=== PATIENT | female | born 1975 | race Native Hawaiian/Other Pacific Islander ===

== ENCOUNTER → 2018-03-16 | Outpatient (CLI) | payer OTHER ==
[2018-03-16 11:55] LABS: Basophils # (A) 0.1 k/uL (0-0.2); Basophils % (A) 1 %; Eosinophils # (A) 0.2 k/uL (0-0.7); Eosinophils % (A) 3 %; HCT 38.8 % (34.0-46.0); HGB 13.2 gm/dL (11.4-16.0); Lymphocytes # (A) 3.1 k/uL (1.0-4.8); Lymphocytes % (A) 33 %; MCH 30.5 pg (25.0-35.0); MCHC 34.1 g/dL (31.0-37.0); MCV 89.6 fL (80.0-100.0); Mean Platelet Volume 6.5; Monocytes # (A) 0.4 k/uL (0-1.0); Monocytes % (A) 4 %; Neutrophils # (A) 5.4 k/uL (1.3-7.7); Neutrophils % (A) 58 %; Platelet Count 376 k/uL (150-450); RBC 4.33 m/uL (3.80-5.40); RDW 12.4 % (11.5-15.5); WBC 9.3 k/uL (3.8-10.6)
[2018-03-16 13:51] LABS: ALT 18 U/L (9-52); AST 15 U/L (14-36); Alkaline Phosphatase 60 U/L (38-126); Anion Gap 10 mmol/L; Blood Urea Nitrogen 14 mg/dL (7-17); Calcium 9.3 mg/dL (8.4-10.2); Carbon Dioxide 22 mmol/L (22-30); Chloride 108 mmol/L (98-107); Glucose 111 mg/dL (74-99); Potassium 4.3 mmol/L (3.5-5.1); Sodium 140 mmol/L (137-145); Total Bilirubin 0.3 mg/dL (0.2-1.3)
== END | disposition home or self-care (01) ==
LOC: LABWHC1 10:26
PROVIDERS: ATTEND Internal Medicine
DX: K21.9 Gastro-esophageal reflux disease without esophagitis (principal); R53.83 Other fatigue; Z13.6 Encounter for screening for cardiovascular disorders
CPT/HCPCS: 36415; 80053; 85025

== ENCOUNTER → 2018-03-17 | Outpatient (CLI) | payer OTHER ==
[2018-03-17 10:26] LABS: Cholesterol 145 mg/dL (<200); HDL Cholesterol 39 mg/dL (40-60); LDL Cholesterol,Calculated 91 mg/dL (0-99); Triglycerides 77 mg/dL (<150)
== END | disposition home or self-care (01) ==
LOC: LABWHC1 09:25
PROVIDERS: ATTEND Internal Medicine
DX: K21.9 Gastro-esophageal reflux disease without esophagitis (principal); R53.83 Other fatigue; Z13.6 Encounter for screening for cardiovascular disorders
CPT/HCPCS: 36415; 80061

== ENCOUNTER → 2019-03-15 | Outpatient (CLI) | payer OTHER ==
--- NOTE | 2019-03-15 08:58 | MR ---
EXAMINATION TYPE: MR lumbar spine wo con DATE OF EXAM: 03/15/2019 COMPARISON: MRI lumbar spine December 07, 2015. HISTORY: Lumbago per order. Back pain into right leg for 3 years per patient. TECHNIQUE: Multiplanar, multisequence imaging of the lumbar spine is performed without IV contrast. FINDINGS: Sagittal images of the lumbar spine show vertebral body heights and alignment to appear sat isfactory. There is disc desiccation L4-L5 and L5-S1 levels with mild disc space narrowing L4-L5 leve l redemonstrated. Annular tear now present L5-S1 level sagittal image 7. The conus medullaris remain s normal in position and signal ending at L1 level. The bone marrow signal intensity is within favian l limits more hyperintense than the adjacent skeletal muscle. Axial images show the T12-L1, L1-L2, L2-L3, and L3-L4 levels all to remain within normal limits. Axial images at the L4-L5 level redemonstrated mild facet degenerative changes and ligamentum flavum hypertrophy producing posterior lateral thecal sac. There is mild broad disc bulge mildly effacing th e anterior thecal sac. Bilateral neural foramina remain patent. No significant change from prior. Axial images at the L5-S1 level shows [id number] facet degenerative changes bilaterally. There is mild broad-based right paracentral disc protrusion with annular tear axial image 3. Focal larger p rotrusion was present on prior study. There is mild effacement of anterior thecal sac improved from p rior. Bilateral neural foramina remain patent. IMPRESSION: Degenerative changes lower lumbar spine redemonstrated. Disc herniation less prominent L5 -S1 level versus prior. No new suspicious disc herniations are seen to account for patient's right-si ded radiculopathy type symptoms however.
== END | disposition home or self-care (01) ==
LOC: RADMRIMAIN 08:20
PROVIDERS: ATTEND Psychiatry & Neurology Neurology
DX: M47.816 Spondylosis without myelopathy or radiculopathy, lumbar region (principal); Z88.6 Allergy status to analgesic agent
CPT/HCPCS: 72148

== ENCOUNTER 2022-02-11 12:25 | Emergency (ER) | payer OTHER ==
[2022-02-11 12:37] VITALS: TEMP 98.3
[2022-02-11] MEDS ORDERED: MORPHINE SULFATE 4 MG/ML SYRINGE IM STA (13:17)
--- NOTE | 2022-02-11 14:21 | ED ---
Lower Extremity Injury HPI - General Chief Complaint: Extremity Injury, Lower Stated Complaint: foot injury Time Seen by Provider: 02/11/22 13:01 Source: patient, RN notes reviewed Mode of arrival: ambulatory Limitations: no limitations - History of Present Illness Initial Comments: Patient is a 46-year-old female who presents to the emergency room with complaints of severe left foot pain after stepping on a rake in her yard. She reports that 2 prongs of the rake punctured the bottom portion of her foot. Her sandal. She was able to pull the rake out but pain and swelling persist. She denies any fevers or foul drainage. She has a past medical history significant for chronic back pain and migraines. She denies any history of diabetes. She does have a history of MRSA. She reports her range of motion is impaired due to pain and swelling but can move her toes and foot. She denies any numbness or tingling. Tetanus is up-to-date. She denies any other complaints or concerns. - Related Data Home Medications Medication Instructions Recorded Confirmed HYDROcodone/APAP 10-325MG [Totz 1 tab PO Q4HR PRN 12/11/15 12/11/15 10-325] Loratadine [Claritin] 10 mg PO DAILY 12/11/15 12/11/15 Previous Rx's Medication Instructions Recorded Sulfamethox-Tmp 800-160Mg [Bactrim 2 each PO Q12HR #40 tab 12/11/15 Ds] Tolnaftate [Tinactin Powder] 1 applic TP BID #108 gram 12/11/15 Ciprofloxacin HCl [Cipro] 500 mg PO Q12HR 7 Days #14 tab 02/11/22 Sulfamethox-Tmp 800-160Mg [Bactrim 1 tab PO Q12HR 7 Days #14 tab 02/11/22 DS 800-160 mg] Allergies Allergy/AdvReac Type Severity Reaction Status Date / Time diphenhydramine HCl Allergy Rash/Hives Verified 02/11/22 12:37 [From Benadryl] propoxyphene napsylate Allergy Rash/Hives Verified 02/11/22 12:37 [From Darvocet-N 100] adhesive AdvReac Rash/Hives Verified 02/11/22 12:37 tramadol HCl [From Ultram] AdvReac Rapid Verified 02/11/22 12:37 Heart Rate Review of Systems ROS Statement: Those systems with pertinent positive or pertinent negative responses have been documented in the HPI. ROS Other: All systems not noted in ROS Statement are negative. Past Medical History Past Medical History: Musculoskeletal Disorder Additional Past Medical History / Comment(s): migraines, chronic back pain, sciatica, lt . foot wound History of Any Multi-Drug Resistant Organisms: MRSA Date of last positivie culture/infection: 06/05/15 MDRO Source:: RIGHT foot Past Surgical History: Cholecystectomy, Hysterectomy Additional Past Surgical History / Comment(s): left foot sx Past Anesthesia/Blood Transfusion Reactions: Motion Sickness, Postoperative Nausea & Vomiting (PONV) Past Psychological History: No Psychological Hx Reported, Bipolar Smoking Status: Current every day smoker Past Alcohol Use History: None Reported Past Drug Use History: None Reported - Past Family History Mother Family Medical History: No Reported History General Exam Limitations: no limitations General appearance: alert, in no apparent distress Head exam: Present: atraumatic, normocephalic, normal inspection Eye exam: Present: normal appearance, PERRL, EOMI. Absent: scleral icterus, conjunctival injection, periorbital swelling ENT exam: Present: normal exam, mucous membranes moist Left Lower Leg exam: Present: normal inspection, full ROM Ankle exam: Present: normal inspection, full ROM Foot/Toe exam: Present: tenderness, swelling, puncture wound (x2 plantar aspect well approximated without drainage) Neurovascular tendon exam: Present: no vascular compromise Gait: observed and limited by pain Neurological exam: Present: alert, oriented X3, CN II-XII intact Psychiatric exam: Present: normal affect, normal mood Skin exam: Present: warm, dry. Absent: rash Course Vital Signs 02/11/22 12:34 Temperature 98.3 F Pulse Rate 91 Respiratory 16 Rate Blood Pressure 137/91 O2 Sat by Pulse 99 Oximetry Medical Decision Making - Medical Decision Making X-ray images reviewed showing no foreign body or fractures. Soft tissue swelling noted. Pain improved with IM dose of morphine. No evidence of cellulitis or sepsis at this time. Disposition Clinical Impression: Puncture wound of foot Disposition: HOME SELF-CARE Condition: Good Instructions (If sedation given, give patient instructions): Puncture Wound in the Foot (ED) Additional Instructions: Please return to the Emergency Department if symptoms worsen or any other concerns. Prescriptions: Sulfamethox-Tmp 800-160Mg [Bactrim DS 800-160 mg] 1 tab PO Q12HR 7 Days #14 tab Ciprofloxacin HCl [Cipro] 500 mg PO Q12HR 7 Days #14 tab Is patient prescribed a controlled substance at d/c from ED?: No Referrals: None,Stated [Primary Care Provider] - 1-2 days
[2022-02-11] MEDS ORDERED: ACET/COD 300 MG/30 MG STARTER PACK 6 TAB BTL PO STA (14:28)
[2022-02-11 14:43] VITALS: BP 132/67; PULSE 67; RESP 18
--- NOTE | 2022-02-11 18:33 | XR ---
EXAMINATION TYPE: XR foot complete LT DATE OF EXAM: 02/11/2022 COMPARISON: 12/11/2015 HISTORY: Pain TECHNIQUE: 3 views FINDINGS: Metatarsals are intact. I see no fracture nor dislocation. Joint spaces are fairly normal. There are no erosions. The hindfoot appears intact. IMPRESSION: Negative left foot exam. No fracture. No sign of inflammatory arthritis.
== END 2022-02-11 14:43 | disposition home or self-care (01) ==
LOC: EC 12:25
DX: S91.332A Puncture wound without foreign body, left foot, initial encounter (principal); F17.200 Nicotine dependence, unspecified, uncomplicated; W26.8XXA Contact with other sharp object(s), not elsewhere classified, initial encounter; Y92.096 Garden or yard of other non-institutional residence as the place of occurrence of the external cause
CPT/HCPCS: 73630; 99283; 96372; J2270

== ENCOUNTER 2022-02-20 05:58 | Observation (INO) | payer OTHER ==
[2022-02-20 06:05] VITALS: RESP 18
[2022-02-20] MEDS ORDERED: SODIUM CHLORIDE 0.9% 1,000 ML IV ONE (06:41)
[2022-02-20] MEDS ORDERED: ACETAMINOPHEN TAB 500 MG TAB PO STA (06:43)
--- NOTE | 2022-02-20 06:47 | ED ---
General Adult HPI - General Chief complaint: Altered Mental Status Stated complaint: AMS Time Seen by Provider: 02/20/22 06:30 Source: patient, EMS, RN notes reviewed, old records reviewed Mode of arrival: EMS - History of Present Illness Initial comments: 46-year-old female, alert and oriented 4, presents to emergency room after brought in by EMS for altered mental status. Patient states that she was outside in the tent with her dogs and went into the house and could not find any family members. She states she felt very cold and walked up to the [facility] and became more confused and they called the ambulance. Patient states she has no complaints of pain, no shortness of breath or cough, no nausea, vomiting or diarrhea. She denies any abdominal pain or dysuria. According to medical records, patient had an ER visit February 11 for puncture wound to her left foot and she was placed on Bactrim and Cipro. Patient denies foot pain, there is no erythema noted to the left foot. She does have a history of migraines, chronic back pain and bipolar. She denies any alcohol or drug use but states is a pack-a-day smoker. -: hour(s) Severity scale (1-10): 0 Consistency: now resolved Associated Symptoms: confusion, fever/chills Treatments Prior to Arrival: other (IVF) - Related Data Home Medications Medication Instructions Recorded Confirmed No Known Home Medications 02/20/22 02/20/22 Allergies Allergy/AdvReac Type Severity Reaction Status Date / Time diphenhydramine HCl Allergy Rash/Hives Verified 02/20/22 07:57 [From Benadryl] propoxyphene napsylate Allergy Rash/Hives Verified 02/20/22 07:57 [From Darvocet-N 100] adhesive AdvReac Rash/Hives Verified 02/20/22 07:57 tramadol HCl [From Ultram] AdvReac Rapid Verified 02/20/22 07:57 Heart Rate Review of Systems ROS Statement: Those systems with pertinent positive or pertinent negative responses have been documented in the HPI. ROS Other: All systems not noted in ROS Statement are negative. Past Medical History Past Medical History: Musculoskeletal Disorder Additional Past Medical History / Comment(s): migraines, chronic back pain, sciatica, lt . foot wound History of Any Multi-Drug Resistant Organisms: MRSA Date of last positivie culture/infection: 06/05/15 MDRO Source:: RIGHT foot Past Surgical History: Cholecystectomy, Hysterectomy Additional Past Surgical History / Comment(s): left foot sx Past Anesthesia/Blood Transfusion Reactions: Motion Sickness, Postoperative Nausea & Vomiting (PONV) Past Psychological History: No Psychological Hx Reported, Bipolar Smoking Status: Current every day smoker Past Alcohol Use History: None Reported Past Drug Use History: None Reported - Past Family History Mother Family Medical History: No Reported History General Exam General appearance: alert, in no apparent distress Head exam: Present: atraumatic Eye exam: Present: normal appearance, PERRL, EOMI. Absent: scleral icterus, conjunctival injection, nystagmus, periorbital swelling, periorbital tenderness ENT exam: Present: normal exam, normal oropharynx, mucous membranes moist Neck exam: Present: normal inspection, full ROM. Absent: tenderness, meningismus, lymphadenopathy Respiratory exam: Present: normal lung sounds bilaterally. Absent: respiratory distress, accessory muscle use Cardiovascular Exam: Present: tachycardia GI/Abdominal exam: Present: soft. Absent: distended, tenderness Extremities exam: Present: normal capillary refill. Absent: tenderness, pedal edema Back exam: Present: full ROM. Absent: tenderness, CVA tenderness (R), CVA tenderness (L), rash noted Neurological exam: Present: alert, oriented X3, CN II-XII intact Psychiatric exam: Present: normal affect, normal mood Skin exam: Present: warm, normal color, diaphoretic. Absent: cyanosis, petechiae, pallor Course Vital Signs 02/20/22 02/20/22 02/20/22 05:59 07:49 08:22 Temperature 101.9 F H 100 F H 98.7 F Pulse Rate 138 H 106 H 101 H Respiratory 18 18 18 Rate Blood Pressure 111/57 98/66 97/62 O2 Sat by Pulse 98 98 98 Oximetry EKG Findings - EKG Results: EKG: sinus rhythm (Ventricular rate 1:30, IA interval 0.120, QRS 0.81, QTC 0.376) Medical Decision Making - Medical Decision Making Patient brought in by EMS for altered mental status with fever. Patient is alert and oriented 4 at this time with complaints of chills only. She denies any abdominal pain, chest pain, or shortness of breath. Denies dysuria. Patient has leukocytosis with evidence of a urinary tract infection. She was given a gram of Rocephin. She was also found to have KRISTIN and elevated troponin. I have a low suspicion that this is cardiac in nature however patient was given aspirin in the ER for elevated troponin. Hypokalemia 3.2 and she was given 40 of K-dur. Heart rate and temperature have come down with Tylenol and IVF. Vital signs are stable. Urine drug screen was positive for opiates, amphetamines, methamphetamines and marijuana which is likely the cause of her altered mental status which has now resolved. Patient will be admitted for urinary tract infection, KRISTIN, elevated troponin, polysubstance abuse and hypokalemia. Case discussed with Dr. Ordoñez - Lab Data Result diagrams: 02/20/22 06:41 02/20/22 06:41 Lab Results 02/20/22 02/20/22 02/20/22 Range/Units 06:41 06:41 06:41 WBC 20.6 H (3.8-10.6) k/uL RBC 4.33 (3.80-5.40) m/uL Hgb 13.0 (11.4-16.0) gm/dL Hct 39.8 (34.0-46.0) % MCV 92.0 (80.0-100.0) fL MCH 30.1 (25.0-35.0) pg MCHC 32.7 (31.0-37.0) g/dL RDW 12.8 (11.5-15.5) % Plt Count 432 (150-450) k/uL MPV 8.0 Neutrophils % 88 % Lymphocytes % 8 % Monocytes % 3 % Eosinophils % 0 % Basophils % 0 % Neutrophils # 18.0 H (1.3-7.7) k/uL Lymphocytes # 1.7 (1.0-4.8) k/uL Monocytes # 0.6 (0-1.0) k/uL Eosinophils # 0.1 (0-0.7) k/uL Basophils # 0.1 (0-0.2) k/uL PT 11.8 (9.0-12.0) sec INR 1.1 (<1.2) APTT 24.4 (22.0-30.0) sec Sodium 137 (137-145) mmol/L Potassium 3.2 L (3.5-5.1) mmol/L Chloride 103 (98-107) mmol/L Carbon Dioxide 17 L (22-30) mmol/L Anion Gap 17 mmol/L BUN 18 H (7-17) mg/dL Creatinine 1.33 H (0.52-1.04) mg/dL Est GFR (CKD-EPI)AfAm 56 (>60 ml/min/1.73 sqM) Est GFR (CKD-EPI)NonAf 48 (>60 ml/min/1.73 sqM) Glucose 224 H (74-99) mg/dL Calcium 9.0 (8.4-10.2) mg/dL Total Bilirubin 0.6 (0.2-1.3) mg/dL AST 25 (14-36) U/L ALT 26 (4-34) U/L Alkaline Phosphatase 106 (38-126) U/L CK-MB (CK-2) (0.0-2.4) ng/mL Troponin I (0.000-0.034) ng/mL Total Protein 7.4 (6.3-8.2) g/dL Albumin 4.1 (3.5-5.0) g/dL Urine Color Urine Appearance (Clear) Urine pH (5.0-8.0) Ur Specific Steele (1.001-1.035) Urine Protein (Negative) Urine Glucose (UA) (Negative) Urine Ketones (Negative) Urine Blood (Negative) Urine Nitrite (Negative) Urine Bilirubin (Negative) Urine Urobilinogen (<2.0) mg/dL Ur Leukocyte Esterase (Negative) Urine RBC (0-5) /hpf Urine WBC (0-5) /hpf Urine WBC Clumps (None) /hpf Ur Squamous Epith Cells (0-4) /hpf Urine Bacteria (None) /hpf Urine Mucus (None) /hpf Urine HCG, Qual (Not Detectd) Urine Opiates Screen (NotDetected) Ur Oxycodone Screen (NotDetected) Urine Methadone Screen (NotDetected) Ur Propoxyphene Screen (NotDetected) Ur Barbiturates Screen (NotDetected) U Tricyclic Antidepress (NotDetected) Ur Phencyclidine Scrn (NotDetected) Ur Amphetamines Screen (NotDetected) U Methamphetamines Scrn (NotDetected) U Benzodiazepines Scrn (NotDetected) Urine Cocaine Screen (NotDetected) U Marijuana (THC) Screen (NotDetected) Serum Alcohol <10 mg/dL Coronavirus (PCR) (Not Detectd) Influenza Type A RNA (Not Detectd) Influenza Type B (PCR) (Not Detectd) 02/20/22 02/20/22 02/20/22 Range/Units 06:41 06:41 06:42 WBC (3.8-10.6) k/uL RBC (3.80-5.40) m/uL Hgb (11.4-16.0) gm/dL Hct (34.0-46.0) % MCV (80.0-100.0) fL MCH (25.0-35.0) pg MCHC (31.0-37.0) g/dL RDW (11.5-15.5) % Plt Count (150-450) k/uL MPV Neutrophils % % Lymphocytes % % Monocytes % % Eosinophils % % Basophils % % Neutrophils # (1.3-7.7) k/uL Lymphocytes # (1.0-4.8) k/uL Monocytes # (0-1.0) k/uL Eosinophils # (0-0.7) k/uL Basophils # (0-0.2) k/uL PT (9.0-12.0) sec INR (<1.2) APTT (22.0-30.0) sec Sodium (137-145) mmol/L Potassium (3.5-5.1) mmol/L Chloride (98-107) mmol/L Carbon Dioxide (22-30) mmol/L Anion Gap mmol/L BUN (7-17) mg/dL Creatinine (0.52-1.04) mg/dL Est GFR (CKD-EPI)AfAm (>60 ml/min/1.73 sqM) Est GFR (CKD-EPI)NonAf (>60 ml/min/1.73 sqM) Glucose (74-99) mg/dL Calcium (8.4-10.2) mg/dL Total Bilirubin (0.2-1.3) mg/dL AST (14-36) U/L ALT (4-34) U/L Alkaline Phosphatase (38-126) U/L CK-MB (CK-2) 2.0 (0.0-2.4) ng/mL Troponin I 1.010 H* (0.000-0.034) ng/mL Total Protein (6.3-8.2) g/dL Albumin (3.5-5.0) g/dL Urine Color Urine Appearance (Clear) Urine pH (5.0-8.0) Ur Specific Steele (1.001-1.035) Urine Protein (Negative) Urine Glucose (UA) (Negative) Urine Ketones (Negative) Urine Blood (Negative) Urine Nitrite (Negative) Urine Bilirubin (Negative) Urine Urobilinogen (<2.0) mg/dL Ur Leukocyte Esterase (Negative) Urine RBC (0-5) /hpf Urine WBC (0-5) /hpf Urine WBC Clumps (None) /hpf Ur Squamous Epith Cells (0-4) /hpf Urine Bacteria (None) /hpf Urine Mucus (None) /hpf Urine HCG, Qual (Not Detectd) Urine Opiates Screen (NotDetected) Ur Oxycodone Screen (NotDetected) Urine Methadone Screen (NotDetected) Ur Propoxyphene Screen (NotDetected) Ur Barbiturates Screen (NotDetected) U Tricyclic Antidepress (NotDetected) Ur Phencyclidine Scrn (NotDetected) Ur Amphetamines Screen (NotDetected) U Methamphetamines Scrn (NotDetected) U Benzodiazepines Scrn (NotDetected) Urine Cocaine Screen (NotDetected) U Marijuana (THC) Screen (NotDetected) Serum Alcohol mg/dL Coronavirus (PCR) (Not Detectd) Influenza Type A RNA Not Detected (Not Detectd) Influenza Type B (PCR) Not Detected (Not Detectd) 02/20/22 02/20/22 02/20/22 Range/Units 06:42 07:03 07:03 WBC (3.8-10.6) k/uL RBC (3.80-5.40) m/uL Hgb (11.4-16.0) gm/dL Hct (34.0-46.0) % MCV (80.0-100.0) fL MCH (25.0-35.0) pg MCHC (31.0-37.0) g/dL RDW (11.5-15.5) % Plt Count (150-450) k/uL MPV Neutrophils % % Lymphocytes % % Monocytes % % Eosinophils % % Basophils % % Neutrophils # (1.3-7.7) k/uL Lymphocytes # (1.0-4.8) k/uL Monocytes # (0-1.0) k/uL Eosinophils # (0-0.7) k/uL Basophils # (0-0.2) k/uL PT (9.0-12.0) sec INR (<1.2) APTT (22.0-30.0) sec Sodium (137-145) mmol/L Potassium (3.5-5.1) mmol/L Chloride (98-107) mmol/L Carbon Dioxide (22-30) mmol/L Anion Gap mmol/L BUN (7-17) mg/dL Creatinine (0.52-1.04) mg/dL Est GFR (CKD-EPI)AfAm (>60 ml/min/1.73 sqM) Est GFR (CKD-EPI)NonAf (>60 ml/min/1.73 sqM) Glucose (74-99) mg/dL Calcium (8.4-10.2) mg/dL Total Bilirubin (0.2-1.3) mg/dL AST (14-36) U/L ALT (4-34) U/L Alkaline Phosphatase (38-126) U/L CK-MB (CK-2) (0.0-2.4) ng/mL Troponin I (0.000-0.034) ng/mL Total Protein (6.3-8.2) g/dL Albumin (3.5-5.0) g/dL Urine Color Yellow Urine Appearance Turbid H (Clear) Urine pH 5.5 (5.0-8.0) Ur Specific Steele 1.019 (1.001-1.035) Urine Protein 2+ H (Negative) Urine Glucose (UA) Trace H (Negative) Urine Ketones Negative (Negative) Urine Blood Moderate H (Negative) Urine Nitrite Negative (Negative) Urine Bilirubin Negative (Negative) Urine Urobilinogen 6.0 (<2.0) mg/dL Ur Leukocyte Esterase Large H (Negative) Urine RBC 23 H (0-5) /hpf Urine WBC >182 H (0-5) /hpf Urine WBC Clumps Many H (None) /hpf Ur Squamous Epith Cells 2 (0-4) /hpf Urine Bacteria Rare H (None) /hpf Urine Mucus Occasional H (None) /hpf Urine HCG, Qual Not Detected (Not Detectd) Urine Opiates Screen (NotDetected) Ur Oxycodone Screen (NotDetected) Urine Methadone Screen (NotDetected) Ur Propoxyphene Screen (NotDetected) Ur Barbiturates Screen (NotDetected) U Tricyclic Antidepress (NotDetected) Ur Phencyclidine Scrn (NotDetected) Ur Amphetamines Screen (NotDetected) U Methamphetamines Scrn (NotDetected) U Benzodiazepines Scrn (NotDetected) Urine Cocaine Screen (NotDetected) U Marijuana (THC) Screen (NotDetected) Serum Alcohol mg/dL Coronavirus (PCR) Not Detected (Not Detectd) Influenza Type A RNA (Not Detectd) Influenza Type B (PCR) (Not Detectd) 02/20/22 Range/Units 07:03 WBC (3.8-10.6) k/uL RBC (3.80-5.40) m/uL Hgb (11.4-16.0) gm/dL Hct (34.0-46.0) % MCV (80.0-100.0) fL MCH (25.0-35.0) pg MCHC (31.0-37.0) g/dL RDW (11.5-15.5) % Plt Count (150-450) k/uL MPV Neutrophils % % Lymphocytes % % Monocytes % % Eosinophils % % Basophils % % Neutrophils # (1.3-7.7) k/uL Lymphocytes # (1.0-4.8) k/uL Monocytes # (0-1.0) k/uL Eosinophils # (0-0.7) k/uL Basophils # (0-0.2) k/uL PT (9.0-12.0) sec INR (<1.2) APTT (22.0-30.0) sec Sodium (137-145) mmol/L Potassium (3.5-5.1) mmol/L Chloride (98-107) mmol/L Carbon Dioxide (22-30) mmol/L Anion Gap mmol/L BUN (7-17) mg/dL Creatinine (0.52-1.04) mg/dL Est GFR (CKD-EPI)AfAm (>60 ml/min/1.73 sqM) Est GFR (CKD-EPI)NonAf (>60 ml/min/1.73 sqM) Glucose (74-99) mg/dL Calcium (8.4-10.2) mg/dL Total Bilirubin (0.2-1.3) mg/dL AST (14-36) U/L ALT (4-34) U/L Alkaline Phosphatase (38-126) U/L CK-MB (CK-2) (0.0-2.4) ng/mL Troponin I (0.000-0.034) ng/mL Total Protein (6.3-8.2) g/dL Albumin (3.5-5.0) g/dL Urine Color Urine Appearance (Clear) Urine pH (5.0-8.0) Ur Specific Steele (1.001-1.035) Urine Protein (Negative) Urine Glucose (UA) (Negative) Urine Ketones (Negative) Urine Blood (Negative) Urine Nitrite (Negative) Urine Bilirubin (Negative) Urine Urobilinogen (<2.0) mg/dL Ur Leukocyte Esterase (Negative) Urine RBC (0-5) /hpf Urine WBC (0-5) /hpf Urine WBC Clumps (None) /hpf Ur Squamous Epith Cells (0-4) /hpf Urine Bacteria (None) /hpf Urine Mucus (None) /hpf Urine HCG, Qual (Not Detectd) Urine Opiates Screen Detected H (NotDetected) Ur Oxycodone Screen Not Detected (NotDetected) Urine Methadone Screen Not Detected (NotDetected) Ur Propoxyphene Screen Not Detected (NotDetected) Ur Barbiturates Screen Not Detected (NotDetected) U Tricyclic Antidepress Not Detected (NotDetected) Ur Phencyclidine Scrn Not Detected (NotDetected) Ur Amphetamines Screen Detected H (NotDetected) U Methamphetamines Scrn Detected H (NotDetected) U Benzodiazepines Scrn Not Detected (NotDetected) Urine Cocaine Screen Not Detected (NotDetected) U Marijuana (THC) Screen Detected H (NotDetected) Serum Alcohol mg/dL Coronavirus (PCR) (Not Detectd) Influenza Type A RNA (Not Detectd) Influenza Type B (PCR) (Not Detectd) Disposition Clinical Impression: UTI (urinary tract infection), KRISTIN (acute kidney injury), Elevated troponin, Polysubstance abuse, Hypokalemia, Mental status change resolved Disposition: ADMITTED IP TO THIS [facility] Decision Date: 02/20/22 Decision Time: 08:51
[2022-02-20 07:29] LABS: Basophils # (A) 0.1 k/uL (0-0.2); Basophils % (A) 0 %; Eosinophils # (A) 0.1 k/uL (0-0.7); Eosinophils % (A) 0 %; HCT 39.8 % (34.0-46.0); Lymphocytes # (A) 1.7 k/uL (1.0-4.8); Lymphocytes % (A) 8 %; MCH 30.1 pg (25.0-35.0); MCHC 32.7 g/dL (31.0-37.0); Monocytes # (A) 0.6 k/uL (0-1.0); Monocytes % (A) 3 %; Neutrophils % (A) 88 %; Platelet Count 432 k/uL (150-450); RBC 4.33 m/uL (3.80-5.40); RDW 12.8 % (11.5-15.5); WBC 20.6 k/uL (3.8-10.6)
[2022-02-20 07:38] LABS: INR 1.1 (<1.2); Partial Thromboplastin Time 24.4 sec (22.0-30.0); Prothrombin Time 11.8 sec (9.0-12.0)
[2022-02-20 07:58] LABS: ALT 26 U/L (4-34); AST 25 U/L (14-36); African American GFR (CKD) 56 (>60 ml/min/1.73 sqM); Albumin 4.1 g/dL (3.5-5.0); Alcohol <10 mg/dL; Alkaline Phosphatase 106 U/L (38-126); Anion Gap 17 mmol/L; Blood Urea Nitrogen 18 mg/dL (7-17); Carbon Dioxide 17 mmol/L (22-30); Chloride 103 mmol/L (98-107); Glucose 224 mg/dL (74-99); Non-African American GFR(CKD) 48 (>60 ml/min/1.73 sqM); Potassium 3.2 mmol/L (3.5-5.1); Sodium 137 mmol/L (137-145); Total Bilirubin 0.6 mg/dL (0.2-1.3); Total Protein 7.4 g/dL (6.3-8.2)
--- NOTE | 2022-02-20 08:05 | XR ---
EXAMINATION TYPE: XR chest 2V DATE OF EXAM: 02/20/2022 COMPARISON: Chest x-ray September 16, 2013. CTA chest September 16, 2013. HISTORY: Altered mental status and weakness. TECHNIQUE: Frontal and lateral views of the chest are obtained. FINDINGS: Poor inspiration. There is no focal air space opacity, pleural effusion, or pneumothorax s een. The cardiac silhouette size is mildly enlarged on current study. Overlying EKG leads. The osse ous structures are intact. IMPRESSION: Mild cardiomegaly may be on basis of poor inspiration. No suspicious acute pulmonary pro cess.
[2022-02-20] MEDS ORDERED: POTASSIUM CHLORIDE ER 20 MEQ TAB.ER PO STA (08:06)
[2022-02-20] MEDS ORDERED: ASPIRIN 81 MG PO STA (08:18)
[2022-02-20 08:23] VITALS: BP 97/62; PULSE 101; TEMP 98.7
[2022-02-20 08:34] LABS: Appearance,Urine Turbid (Clear); Bacteria,Urine Rare /hpf; Bilirubin,Urine Negative (Negative); Blood,Urine Moderate (Negative); Color,Urine Yellow; Glucose,Urine (UA) Trace (Negative); Ketones,Urine Negative (Negative); Leukocyte Esterase,Urine Large (Negative); Mucus,Urine Occasional /hpf; Nitrite,Urine Negative (Negative); PH, Urine 5.5 (5.0-8.0); Protein,Urine 2+ (Negative); RBC,Urine 23 /hpf (0-5); Specific Gravity,Urine 1.019 (1.001-1.035); Squamous Epithelial Cell,Urine 2 /hpf (0-4); WBC,Urine >182 /hpf (0-5)
[2022-02-20 08:35] LABS: Amphetamine Screen,Urine Detected (NotDetected); Cocaine Screen,Urine Not Detected (NotDetected); Opiate Screen,Urine Detected (NotDetected); Phencyclidine Screen,Urine Not Detected (NotDetected); Urn Cannabinoid Scrn Detected (NotDetected)
[2022-02-20 08:36] LABS: Barbiturate Screen,Urine Not Detected (NotDetected); Benzodiazepines Screen,Urine Not Detected (NotDetected); Methadone Screen, Urine Not Detected (NotDetected); Oxycodone Screen, Urine Not Detected (NotDetected); Tricyclic Antidepressant,Urine Not Detected (NotDetected)
[2022-02-20] MEDS ORDERED: cefTRIAXone IN SWFI 1,000 MG/10 ML SYRINGE IVP STA (08:44)
[2022-02-20] MEDS ORDERED: ACETAMINOPHEN TAB 325 MG TAB PO PRN (09:01)
[2022-02-20] MEDS ORDERED: NALOXONE 0.4 MG/ML 1 ML VIAL IV PRN (09:01)
[2022-02-20] MEDS ORDERED: SODIUM CHLORIDE 0.9% 1,000 ML IV SCH (09:15)
[2022-02-20] MEDS ORDERED: INSULIN ASPART (NovoLOG) 100 UNIT/ML VIAL SQ SCH (12:30)
--- NOTE | 2022-02-20 12:45 | CA ---
Transthoracic Echo Report Name: Loulou Garcia Age: 46 Gender: F : 1975 Exam Date: 02/20/2022 10:03 Exam Location: [place] [facility] Ht (in): 62 Wt (lb): 190 Ordering Physician: gAus Peguero Attending/Referring Phys: [employer] Form[employer] Machine Helper Evelyn Cain RDCS Procedure CPT: Indications: elevated trop Cardiac Hx: Technical Quality: Technically difficult study Contrast 1: Lumason Total Dose (mL): 3 Contrast 2: Total Dose (mL): MEASUREMENTS (Male / Female) Normal Values 2D ECHO LV Diastolic Diameter PLAX 3.4 cm 4.2 - 5.9 / 3.9 - 5.3 cm LV Systolic Diameter PLAX 2.7 cm IVS Diastolic Thickness 1.3 cm 0.6 - 1.0 / 0.6 - 0.9 cm LVPW Diastolic Thickness 1.3 cm 0.6 - 1.0 / 0.6 - 0.9 cm LV Relative Wall Thickness 0.8 LA Volume 52.8 cm??? 18 - 58 / 22 - 52 cm??? M-MODE Aortic Root Diameter MM 2.3 cm DOPPLER AV Peak Velocity 126.9 cm/s AV Peak Gradient 6.4 mmHg LVOT Peak Velocity 83.6 cm/s LVOT Peak Gradient 2.8 mmHg MV Area PHT 4.7 cm??? Mitral E Point Velocity 88.0 cm/s Mitral A Point Velocity 76.6 cm/s Mitral E to A Ratio 1.1 MV Deceleration Time 160.0 ms TR Peak Velocity 223.9 cm/s TR Peak Gradient 20.0 mmHg Right Ventricular Systolic Press 25.0 mmHg FINDINGS Left Ventricle Mildly increased left ventricular wall thickness. No obvious regional wall motion abnormalities. Left ventricular ejection fraction is estimated at 50 %. Normal left ventricular diastolic filling pattern. Right Ventricle Right ventricle not well visualized. Right ventricular systolic pressure within normal limits. Right Atrium Normal right atrial size. Left Atrium Normal left atrial size. No evidence for an atrial septal defect. Mitral Valve Structurally normal mitral valve. Mild mitral regurgitation. Mitral annular calcification. Aortic Valve Aortic valve not well visualized. No aortic valve stenosis or regurgitation. Tricuspid Valve Structurally normal tricuspid valve. Mild tricuspid regurgitation. Pulmonic Valve Structurally normal pulmonic valve. Trace pulmonic regurgitation. Pericardium No pericardial effusion. Aorta Normal size aortic root and proximal ascending aorta. CONCLUSIONS Technically difficult study fairly well-preserved systolic function. Echo contrast was used to enhance images. Mild mitral and tricuspid insufficiency. No pericardial effusion Previewed by: Dr. Feliciano Lucas MD (Electronically Signed) Final Date: 20 February 2022 12:44
[2022-02-20] MEDS ORDERED: HEPARIN SODIUM,PORCINE/PF 5,000 UNIT/0.5 ML SYRINGE SQ SCH (16:00)
--- NOTE | 2022-02-20 18:31 | CONS ---
CONSULTATION CHIEF COMPLAINT: Elevated troponin. This is a 46-year-old lady who is brought to the emergency room at [facility] apparently for altered mental status. Patient was outside in the tent with her dogs. She felt cold, walked up to the local [employer]; she was confused and an ambulance was called. In the emergency room she appears alert and awake. Denies any chest pain, difficulty in breathing, palpitations or syncope. There are no focal neurological deficits. She has history of migraine, chronic back pain and bipolar mood disorder. She is apparently not taking any medications. Patient denies any drug use; however, her urine drug screen is positive for opiates, amphetamines, methamphetamines and marijuana. Her first troponin was 1. The subsequent troponin was 0.6. EKG revealed sinus rhythm without acute ST-T wave changes. There was sinus tachycardia. An echocardiogram showed normal LV function without any wall motion abnormalities. After my initial evaluation I advised the patient to get admitted for observation and monitoring. PAST MEDICAL HISTORY: Negative for hypertension, diabetes, dyslipidemia. MEDICATIONS: Medications at home included Ceftin 500 b.i.d. ALLERGIES: DARVOCET, TRAMADOL AND BENADRYL. FAMILY HISTORY: Negative for premature coronary artery disease. SOCIAL HISTORY: Significant for drug abuse and smoking. REVIEW OF SYSTEMS: HEENT is unremarkable. CARDIAC: As described above. RESPIRATORY: Negative. GI: Negative. GENITOURINARY: Negative. ALLERGY/IMMUNOLOGY: Negative. SKIN: Negative. MUSCULOSKELETAL: Significant for arthritis. PSYCHOSOCIAL: Negative. DERMATOLOGY: Negative. CONSTITUTIONAL: Negative. ONCOLOGICAL: Negative. BIRDCAGE ASSEMBLER: As described above. PHYSICAL EXAMINATION: On exam, she appears comfortable at rest. Vital signs are stable. Chest exam reveals good air entry bilaterally. Heart exam reveals first and second heart sounds. No gallop. No murmur. No rub. Abdomen is soft. Examination of extremities did not reveal any edema. Peripheral pulses are felt. LABS: Labs showed that the white cell count is elevated at 20, platelet count is 432, hemoglobin is 13. Potassium is low at 3.2 and should be supplemented. Creatinine is elevated at 1.3. Troponin is elevated at 1 and 1. Urine drug screen is abnormal. ASSESSMENT: Elevated troponin, probably related to a ieu-CB-bnowkle-elevation myocardial infarction; could be related to the drug abuse. Patient denies any chest pain. Echocardiogram does not reveal wall motion abnormalities and the LV function is normal. She is not a candidate for intravenous heparin at this time, given the recent unexplained confusion. Will admit her, watch her overnight and see how her symptoms evolve and clinical situation progresses. NAMRATA / WARNERN: [id number] /
--- NOTE | 2022-03-05 01:24 | P.HPIM ---
History of Present Illness H&P Date: 02/20/22 Chief Complaint: Altered mental status Patient is a 46-year-old female with a known history of chronic back pain, migraine headaches, sciatica, bipolar disorder history of MRSA infection and currently everyday smoker presents to ER with complaints of altered mental status. Patient states that she was outside her left hand with her dogs and went into the house and could not find any numbers. Patient states that she felt very cold and and walked up with his PDQ and became more confused and they called ambulance. Otherwise patient is more awake and oriented now. No co mplaints of chest pain or shortness breath. No nausea vomiting abdominal pain or diarrhea. No cough or production. no recent illnesses. Patient was seen in the ER on 02/11/2022 due to puncture wound to her left foot and was started on Bactrim and Cipro. Denies any complaints of foot pain currently. Chest x-ray showed mild cardiomegaly may be on the basis of poor inspiration. No suspicious acute pulmonary process. EKG showed sinus tachycardia. On admission patient had fever 101.9 and heart rate 138 and pulse ox 98% on room air. Laboratory pressure WBC 20.6 hemoglobin 13.0 and platelets 432 Sodium 137 potassium 3.2 chloride 103 bicarb is 17 BUN 18 and creatinine 1.3 creatinine blood sugar 224 Troponin 1.010 and 0.648 Urinalysis showed turbid with 2+ protein moderate blood large leukocyte esterase and elevated RBCs and WBCs. UDS is positive for opiates, phencyclidine, amphetamines, marijuana. COVID-19 PCR and influenza not detected. Review of Systems Constitutional: Patient denies any fever or chills . Generalized weakness and confusion. Abdomen: Patient denied any nausea or vomiting or abd. pain Cardiovascular: Patient denies any chest pain or short of breath no palpitations. Respiratory: patient denied any cough is from production. No shortness of breath Neurologic: Patient denied any numbness or tingling headache. Musculoskeletal: Patient denies any complaints of joint swelling or deformity. Skin: Negative Psychiatric: Negative Endocrine: No heat or cold intolerance. No recent weight gain. Genitourinary: No dysuria or hematuria. Denies any flank pain. All other 14 point ROS negative except the above Past Medical History Past Medical History: Musculoskeletal Disorder Additional Past Medical History / Comment(s): migraines, chronic back pain, sciatica, lt . foot wound History of Any Multi-Drug Resistant Organisms: MRSA Date of last positivie culture/infection: 06/05/15 MDRO Source:: RIGHT foot Past Surgical History: Cholecystectomy, Hysterectomy Additional Past Surgical History / Comment(s): left foot sx Past Anesthesia/Blood Transfusion Reactions: Motion Sickness, Postoperative Nausea & Vomiting (PONV) Past Psychological History: No Psychological Hx Reported, Bipolar Smoking Status: Current every day smoker Past Alcohol Use History: None Reported Past Drug Use History: None Reported - Past Family History Mother Family Medical History: No Reported History Medications and Allergies Home Medications Medication Instructions Recorded Confirmed Type cefUROXime axetiL [Ceftin] 500 mg PO BID 4 Days #8 tab 02/20/22 Rx Allergies Allergy/AdvReac Type Severity Reaction Status Date / Time diphenhydramine HCl Allergy Rash/Hives Verified 02/20/22 07:57 [From Benadryl] propoxyphene napsylate Allergy Rash/Hives Verified 02/20/22 07:57 [From Darvocet-N 100] adhesive AdvReac Rash/Hives Verified 02/20/22 07:57 tramadol HCl [From Ultram] AdvReac Rapid Verified 02/20/22 07:57 Heart Rate Physical Exam Vitals: Vital Signs Temp Pulse Resp BP Pulse Ox 02/20/22 08:22 98.7 F 101 H 18 97/62 98 02/20/22 07:49 100 F H 106 H 18 98/66 98 02/20/22 05:59 101.9 F H 138 H 18 111/57 98 Intake and Output 02/19/22 02/20/22 02/20/22 22:59 06:59 14:59 Other: Weight 86.183 kg PHYSICAL EXAMINATION: Patient is lying in the bed comfortably, no acute distress, awake alert and oriented.. HEENT: Normocephalic. Neck is supple. Pupils reactive. Nostrils clear. Oral cavity is moist. Neck reveals no JVD, carotid bruits, or thyromegaly. CHEST EXAMINATION: Trachea is central. Symmetrical expansion. Lung wells clear to auscultation and percussion. CARDIAC: Normal S1, S2 with no gallops. No murmurs ABDOMEN: Soft. Bowel sounds present. Nontender. No organomegaly. No abdominal bruits. Extremities: reveal no edema. No clubbing or cyanosis Neurologically awake, alert, oriented x3 with well-coordinated movements. No focal deficits noted Skin: No rash or skin lesions. Psychiatric: Coperative. Nonsuicidal, anxious. Musculoskeletal: No joint swelling or deformity. Normal range of motion. Results CBC & Chem 7: 02/20/22 06:41 02/20/22 06:41 Labs: Abnormal Lab Results - Last 24 Hours (Table) 02/20/22 02/20/22 02/20/22 Range/Units 06:41 06:41 06:41 WBC 20.6 H (3.8-10.6) k/uL Neutrophils # 18.0 H (1.3-7.7) k/uL Potassium 3.2 L (3.5-5.1) mmol/L Carbon Dioxide 17 L (22-30) mmol/L BUN 18 H (7-17) mg/dL Creatinine 1.33 H (0.52-1.04) mg/dL Glucose 224 H (74-99) mg/dL Troponin I 1.010 H* (0.000-0.034) ng/mL Urine Appearance (Clear) Urine Protein (Negative) Urine Glucose (UA) (Negative) Urine Blood (Negative) Ur Leukocyte Esterase (Negative) Urine RBC (0-5) /hpf Urine WBC (0-5) /hpf Urine WBC Clumps (None) /hpf Urine Bacteria (None) /hpf Urine Mucus (None) /hpf Urine Opiates Screen (NotDetected) Ur Amphetamines Screen (NotDetected) U Methamphetamines Scrn (NotDetected) U Marijuana (THC) Screen (NotDetected) 02/20/22 02/20/22 Range/Units 07:03 07:03 WBC (3.8-10.6) k/uL Neutrophils # (1.3-7.7) k/uL Potassium (3.5-5.1) mmol/L Carbon Dioxide (22-30) mmol/L BUN (7-17) mg/dL Creatinine (0.52-1.04) mg/dL Glucose (74-99) mg/dL Troponin I (0.000-0.034) ng/mL Urine Appearance Turbid H (Clear) Urine Protein 2+ H (Negative) Urine Glucose (UA) Trace H (Negative) Urine Blood Moderate H (Negative) Ur Leukocyte Esterase Large H (Negative) Urine RBC 23 H (0-5) /hpf Urine WBC >182 H (0-5) /hpf Urine WBC Clumps Many H (None) /hpf Urine Bacteria Rare H (None) /hpf Urine Mucus Occasional H (None) /hpf Urine Opiates Screen Detected H (NotDetected) Ur Amphetamines Screen Detected H (NotDetected) U Methamphetamines Scrn Detected H (NotDetected) U Marijuana (THC) Screen Detected H (NotDetected) Thrombosis Risk Factor Assmnt - DVT/VTE Prophylaxis DVT/VTE Prophylaxis: Pharmacologic Prophylaxis ordered Assessment and Plan Assessment: Altered mental status likely due to drug use with UDS positive for opiates, phencyclidine, amphetamines and marijuana. Improved now Acute urinary tract infection Sepsis secondary to above Elevated troponin level possible NSTEMI versus demand ischemia due to sepsis Bipolar disorder Ongoing nicotine addiction Chronic back pain Migraine headaches DVT prophylaxis with heparin subcu Plan: Patient will be continued on IV hydration and antibiotics in the form of ceftriaxone. Follow-up urine culture report. Cardiology was consulted elevated troponin level. Unlikely ACS and does not recommend heparin drip at this time. Follow-up with 2D echocardiogram report and patient otherwise denies any complaints of chest pain or shortness of breath currently. Continue to follow closely. Smoking cessation has been counseled extensively. Time with Patient: Greater than 30
--- NOTE | 2022-03-05 01:25 | P.DS ---
Providers Date of admission: 02/20/22 08:12 Expected date of discharge: 02/20/22 Attending physician: Bradford Cunningham Consults: 02/20/22 09:01 Consult Physician Routine Consulting Provider: Tyler Christian Consult Reason/Comments: Elevated troponin Do you want consulting provider notified?: Yes, Notify in am Consult Physician Routine Consulting Provider: Kyara Vazquez Consult Reason/Comments: KRISTIN, UTI Do you want consulting provider notified?: Yes, Notify in am Primary care physician: Stated None Hospital Course: Patient left AMA Please see H&P for full details. Patient Condition at Discharge: Serious Plan - Discharge Summary New Discharge Prescriptions: New cefUROXime axetiL [Ceftin] 500 mg PO BID 4 Days #8 tab Discharge Medication List cefUROXime axetiL [Ceftin] 500 mg PO BID 4 Days #8 tab 02/20/22 [Rx] Follow up Appointment(s)/Referral(s): None,Stated [Primary Care Provider] - 1-2 days Discharge Disposition: Left Against Medical Advice
== END 2022-02-20 13:23 | disposition left against medical advice (07) ==
LOC: EC 05:58 → 3SCARD 08:12 → INTOOBSV 08:12 → UNDODISIN 13:23
PROVIDERS: ADMIT Internal Medicine; ATTEND Internal Medicine
DX: A41.9 Sepsis, unspecified organism (principal); N39.0 Urinary tract infection, site not specified; N17.9 Acute kidney failure, unspecified; R79.89 Other specified abnormal findings of blood chemistry; R41.82 Altered mental status, unspecified; E87.6 Hypokalemia; F15.10 Other stimulant abuse, uncomplicated; F11.10 Opioid abuse, uncomplicated; F12.10 Cannabis abuse, uncomplicated; I08.1 Rheumatic disorders of both mitral and tricuspid valves; F31.9 Bipolar disorder, unspecified; G43.909 Migraine, unspecified, not intractable, without status migrainosus; M54.30 Sciatica, unspecified side; G89.29 Other chronic pain; M54.9 Dorsalgia, unspecified; F17.210 Nicotine dependence, cigarettes, uncomplicated; Z53.29 Procedure and treatment not carried out because of patient's decision for other reasons; S91.332D Puncture wound without foreign body, left foot, subsequent encounter; X58.XXXD Exposure to other specified factors, subsequent encounter; Z20.822 Contact with and (suspected) exposure to COVID-19; Z88.5 Allergy status to narcotic agent; Z88.8 Allergy status to other drugs, medicaments and biological substances; Z91.048 Other nonmedicinal substance allergy status; Z86.14 Personal history of Methicillin resistant Staphylococcus aureus infection; Z90.49 Acquired absence of other specified parts of digestive tract; Z90.710 Acquired absence of both cervix and uterus; Z98.890 Other specified postprocedural states; Z71.6 Tobacco abuse counseling
CPT/HCPCS: 96361; 96374; 99285; 36415; 93005; 80053; 82553; 83605; 84484; 85025; 85610; 85730; 81001; 81025; 80306; 87086; 87077; 87186; 87502; 87635; 71046; G0378; C8929; G0480; J0696; Q9950; 80320; 93306